=== PATIENT | female | born 1990 | race Caucasian/White ===

== ENCOUNTER 2022-03-14 19:32 | Emergency (ER) | payer MEDICAID ==
[~2022-03-14] VITALS: Ht 170.2 cm; Wt 119.7 kg
[2022-03-15 00:08] LABS: Urine Bacteria FEW /hpf (None Seen); Urine Blood Negative /uL (Negative); Urine Mucus FEW (None Seen); Urine Specific Gravity 1.025 (1.001-1.035); Urine WBC 1 /hpf (0 - 5)
[2022-03-15] MEDS ORDERED: KETOROLAC TROMETH 30 MG/ML 1ML VIAL IM ONE (01:00)
[2022-03-15] MEDS ORDERED: HYDROcodone-ACET 5/325MG TAB PO ONE (01:00)
[2022-03-15 02:00] VITALS: BP 138/94
== END 2022-03-15 02:48 | disposition home or self-care (01) ==
LOC: ER 19:32
DX: M54.50 Low back pain, unspecified (principal); M62.830 Muscle spasm of back; J45.909 Unspecified asthma, uncomplicated; F12.10 Cannabis abuse, uncomplicated; I10 Essential (primary) hypertension; Z90.49 Acquired absence of other specified parts of digestive tract; Z32.02 Encounter for pregnancy test, result negative
CPT/HCPCS: 81001; 81025; 96372; 99283; J1885

== ENCOUNTER 2023-10-30 23:37 | Inpatient (IN) | payer MEDICAID ==
[~2023-10-30] VITALS: Ht 170.2 cm; Wt 132.7 kg
[2023-10-31] VITALS (11 sets, daily range): BP systolic 160; BP diastolic 104; PULSE 94–134; RESP 18–36; TEMP 99.6; O2SAT 94–99
[2023-10-31] MEDS ORDERED: guaiFENesin-DM 100/10mg/5ml SYR PO ONE
[2023-10-31] MEDS ORDERED: SODIUM CHLORIDE 0.9% 1,000 ML IV ONE
[2023-10-31] MEDS ORDERED: TERBUTALINE SULFATE 1 MG/ML 1ML VIAL SC ONE
[2023-10-31] MEDS ORDERED: IPRATROPIUM BROM 0.5 MG/2.5ML INH SOL NEB ONE
[2023-10-31] MEDS ORDERED: ALBUTEROL SULF 2.5 MG/0.5ML(0.5%) NEB SOLN NEB ONE
[2023-10-31] MEDS ORDERED: methylPREDNISolone SOD SUCC 125 MG/2 ML VL IV ONE
[2023-10-31 00:18] LABS: Basophils # (auto) 0.1 10 ^3/uL (0-0.2); Basophils % (auto) 0.8 % (0.0-2.0); Eosinophils # (auto) 0.2 10 ^3/uL (0-0.8); Eosinophils % (auto) 1.3 % (0.0-7.0); Hematocrit 47.6 % (36.0-46.0); Hemoglobin 15.6 g/dL (12.2-16.2); Lymphocytes % (auto) 5.7 % (10.0-50.0); Mean Corpuscular Hemoglobin 28.9 pg (28.0-32.0); Mean Corpuscular Hgb Conc. 32.9 g/dL (32.0-36.0); Mean Corpuscular Volume 87.7 fL (80.0-100.0); Monocytes % (auto) 5.8 % (0.0-12.0); Neutrophils # (auto) 15.1 10 ^3/uL (1.6-8.6); Neutrophils % (auto) 86.4 % (37.0-80.0); Red Blood Cells 5.42 10^6/uL (4.0-5.20); Red Cell Distribution Width 13.2 % (11.8-14.3); White Blood Cell 17.4 10^3/uL (4.4-10.8)
[2023-10-31 00:37] LABS: Alanine Aminotransferase 22 U/L (7-40); Albumin 5.1 g/dL (3.2-4.8); Alkaline Phosphatase 94 U/L (46-116); Anion Gap 7 (5-15); Aspartate Aminotransferase 22 U/L (13-40); Bilirubin, Total 0.7 mg/dL (0.2-1.0); Calcium 9.6 mg/dL (8.7-10.4); Carbon Dioxide 25 mmol/L (20-30); Chloride 104 mmol/L (98-107); Glucose 124 mg/dL (74-106); Potassium 4.3 mmol/L (3.5-5.1); Sodium 136 mmol/L (136-145); Total Protein 8.6 g/dL (5.7-8.2)
[2023-10-31 00:54] LABS: BUN/Creatinine Ratio 5.1 (10.0-20.0); Blood Urea Nitrogen < 5 mg/dL (9-23)
[2023-10-31] MEDS: MAGNESIUM SULFATE 1GM/100ML 100 ML IV SCH ×2 (02:15→02:16)
[2023-10-31] MEDS ORDERED: ONDANSETRON HCL 4 MG/2 ML VIAL IV PRN (03:15)
[2023-10-31] MEDS ORDERED: DOCUSATE SOD 100 MG CAP PO PRN (03:15)
[2023-10-31 03:52] LABS: Base Excess -3.8 mmol/L (-2.0-2.0)
[2023-10-31 04:39] LABS: COVID19 ANTIGEN SOFIA FIA NEGATIVE (NEGATIVE); Rapid Influenza A Negative (Negative); Rapid Influenza B Negative (Negative)
[2023-10-31] MEDS: methylPREDNISolone SOD SUCC 125 MG/2 ML VL IV SCH ×4 (04:48→22:02)
[2023-10-31] MEDS: SODIUM CHLOR 0.9% PF (SALINE LOCK) 10ML VIAL/SYR IV SCH ×3 (05:06→22:02)
[2023-10-31] MEDS ORDERED: LACTATED RINGER'S 1,000 ML IV ONE (06:00)
[2023-10-31] MEDS: IPRATROPIUM BROM 0.5 MG/2.5ML INH SOL NEB SCH ×4 (06:33→23:55)
[2023-10-31] MEDS: ALBUTEROL SULF 2.5 MG/0.5ML(0.5%) NEB SOLN NEB SCH ×4 (06:33→23:55)
[2023-10-31] MEDS: ENOXAPARIN SOD 40 MG/0.4 ML SYRINGE SC SCH (09:44)
[2023-10-31] MEDS: PANTOPRAZOLE 40 MG/10 ML VIAL INJ IV SCH (09:44)
[2023-10-31] MEDS: AZITHROMYCIN 500MG/ 250ML 250 ML IV SCH (13:52)
[2023-10-31] MEDS: SODIUM CHLORIDE 0.9% 1,000 ML IV SCH (13:52)
[2023-10-31] MEDS: MONTELUKAST SODIUM 10 MG TAB PO SCH (22:01)
[2023-11-01] VITALS (10 sets, daily range): PULSE 68–103; RESP 16–24; O2SAT 89–100
[2023-11-01] MEDS: SODIUM CHLORIDE 0.9% 1,000 ML IV SCH ×2 (01:50→15:18)
[2023-11-01] MEDS: methylPREDNISolone SOD SUCC 125 MG/2 ML VL IV SCH ×4 (03:34→21:04)
[2023-11-01 05:39] LABS: Hemoglobin 14.5 g/dL (12.2-16.2); Mean Corpuscular Hemoglobin 29.6 pg (28.0-32.0); Mean Corpuscular Hgb Conc. 33.6 g/dL (32.0-36.0); Mean Corpuscular Volume 87.9 fL (80.0-100.0); Red Blood Cells 4.89 10^6/uL (4.0-5.20); Red Cell Distribution Width 13.4 % (11.8-14.3)
[2023-11-01 05:46] LABS: Anion Gap 8 (5-15); Carbon Dioxide 26 mmol/L (20-30); Chloride 106 mmol/L (98-107); Potassium 4.9 mmol/L (3.5-5.1); Sodium 140 mmol/L (136-145)
[2023-11-01 05:48] LABS: Calcium 9.3 mg/dL (8.7-10.4)
[2023-11-01 05:53] LABS: BUN/Creatinine Ratio 17.1 (10.0-20.0); Blood Urea Nitrogen 14 mg/dL (9-23); Glucose 138 mg/dL (74-106)
[2023-11-01] MEDS: SODIUM CHLOR 0.9% PF (SALINE LOCK) 10ML VIAL/SYR IV SCH ×3 (06:26→21:07)
[2023-11-01] MEDS: ALBUTEROL SULF 2.5 MG/0.5ML(0.5%) NEB SOLN NEB SCH ×5 (06:57→21:59)
[2023-11-01] MEDS: IPRATROPIUM BROM 0.5 MG/2.5ML INH SOL NEB SCH ×5 (06:57→21:58)
[2023-11-01 07:02] LABS: Basophils % (manual) 0 (0.0-2.0); Blast Cells 0; Eosinophils % (manual) 0 (0-7); Metamyelocytes % 0; Myelocytes % 0; Promyelocytes % 0; Reactive Lymphocytes 0
[2023-11-01] MEDS: ACETAMINOPHEN 325 MG TAB PO PRN ×3 (09:06→22:01)
[2023-11-01] MEDS: PANTOPRAZOLE 40 MG/10 ML VIAL INJ IV SCH (09:42)
[2023-11-01] MEDS: ENOXAPARIN SOD 40 MG/0.4 ML SYRINGE SC SCH (09:42)
[2023-11-01] MEDS: AZITHROMYCIN 500MG/ 250ML 250 ML IV SCH (09:43)
[2023-11-01] MEDS ORDERED: LORazepam 2MG/ML-1ML VIAL IV ONE (11:00)
[2023-11-01] MEDS ORDERED: SERT-160 PO (11:48)
[2023-11-01] MEDS ORDERED: ALBUAER3 IN (11:48)
[2023-11-01] MEDS ORDERED: LABE100T5 PO (11:48)
[2023-11-01] MEDS ORDERED: ALPR0.5T PO (11:48)
[2023-11-01] MEDS ORDERED: MAGNESIUM SULFATE 1GM/100ML 100 ML IV ONE (12:00)
[2023-11-01 12:39] LABS: Band Neutrophils % (manual) 4; Lymphocytes % (manual) 4 (10.0-50.0); Monocytes % (manual) 1 (0-12)
[2023-11-01 12:40] LABS: Platelet Estimate Adequate
[2023-11-01] MEDS: ALPRAZolam 0.5 MG TAB PO PRN (21:04)
[2023-11-01] MEDS: MONTELUKAST SODIUM 10 MG TAB PO SCH (21:05)
[2023-11-02] VITALS (19 sets, daily range): BP systolic 104–144; BP diastolic 51–88; PULSE 76–96; RESP 17–22; TEMP 97.7–98.7; O2SAT 90–96
[2023-11-02] MEDS: SODIUM CHLORIDE 0.9% 1,000 ML IV SCH (01:14)
[2023-11-02] MEDS: IPRATROPIUM BROM 0.5 MG/2.5ML INH SOL NEB SCH ×6 (01:47→22:21)
[2023-11-02] MEDS: ALBUTEROL SULF 2.5 MG/0.5ML(0.5%) NEB SOLN NEB SCH ×6 (01:47→22:21)
[2023-11-02] MEDS: methylPREDNISolone SOD SUCC 125 MG/2 ML VL IV SCH ×4 (03:51→21:08)
[2023-11-02] MEDS: SODIUM CHLOR 0.9% PF (SALINE LOCK) 10ML VIAL/SYR IV SCH ×3 (06:01→21:10)
[2023-11-02] MEDS: AZITHROMYCIN 500MG/ 250ML 250 ML IV SCH (09:46)
[2023-11-02] MEDS: PANTOPRAZOLE 40 MG/10 ML VIAL INJ IV SCH (09:46)
[2023-11-02] MEDS: ENOXAPARIN SOD 40 MG/0.4 ML SYRINGE SC SCH (09:46)
[2023-11-02] MEDS: HYDROcodone-ACET 5/325MG TAB PO PRN ×2 (09:55→19:59)
[2023-11-02] MEDS: LORATADINE 10 MG TAB PO SCH (13:50)
[2023-11-02] MEDS: ACETYLCYSTEINE 10 %(100MG/ML) SOL 4ML NEB SCH ×3 (15:06→22:21)
[2023-11-02] MEDS: MONTELUKAST SODIUM 10 MG TAB PO SCH (21:08)
[2023-11-02] MEDS: ALPRAZolam 0.5 MG TAB PO PRN (21:08)
[2023-11-03] VITALS (13 sets, daily range): BP systolic 119–151; BP diastolic 61–89; PULSE 73–98; RESP 18–20; TEMP 97.4–98; O2SAT 91–99
[2023-11-03] MEDS: IPRATROPIUM BROM 0.5 MG/2.5ML INH SOL NEB SCH ×4 (02:08→14:19)
[2023-11-03] MEDS: ALBUTEROL SULF 2.5 MG/0.5ML(0.5%) NEB SOLN NEB SCH ×4 (02:08→14:19)
[2023-11-03] MEDS: ACETYLCYSTEINE 10 %(100MG/ML) SOL 4ML NEB SCH (02:08)
[2023-11-03] MEDS: methylPREDNISolone SOD SUCC 125 MG/2 ML VL IV SCH ×2 (03:53→10:56)
[2023-11-03] MEDS: SODIUM CHLOR 0.9% PF (SALINE LOCK) 10ML VIAL/SYR IV SCH (06:03)
[2023-11-03] MEDS: PANTOPRAZOLE 40 MG/10 ML VIAL INJ IV SCH (10:56)
[2023-11-03] MEDS: ENOXAPARIN SOD 40 MG/0.4 ML SYRINGE SC SCH (10:56)
[2023-11-03] MEDS: AZITHROMYCIN 500MG/ 250ML 250 ML IV SCH (10:56)
[2023-11-03] MEDS: LORATADINE 10 MG TAB PO SCH (10:57)
[2023-11-03] MEDS ORDERED: ALBU0.084 NEB (12:29)
[2023-11-03] MEDS ORDERED: DOXY-448 PO (12:29)
[2023-11-03] MEDS ORDERED: PRED20TA2 PO (12:29)
[2023-11-03] MEDS ORDERED: ALBUAER3 IN (12:29)
[2023-11-03] MEDS ORDERED: MONT10TA23 PO (12:29)
== END 2023-11-03 15:00 | disposition home or self-care (01) | DRG 133 ==
LOC: ER 23:37 → OVERFLOW 10-31 03:15 → EAST 11-01 10:14 → CENTRAL 11-01 17:14
PROVIDERS: ADMIT Internal Medicine; ATTEND Nurse Practitioner Acute Care
DX: J96.01 Acute respiratory failure with hypoxia (principal); J45.901 Unspecified asthma with (acute) exacerbation; B34.9 Viral infection, unspecified; D72.829 Elevated white blood cell count, unspecified; E66.9 Obesity, unspecified; F41.9 Anxiety disorder, unspecified; I10 Essential (primary) hypertension; Z20.822 Contact with and (suspected) exposure to COVID-19; F32.A Depression, unspecified; J45.909 Unspecified asthma, uncomplicated; Z90.49 Acquired absence of other specified parts of digestive tract; Z68.42 Body mass index [BMI] 45.0-49.9, adult
CPT/HCPCS: 36415; 36600; 71045; 80048; 80053; 82805; 83880; 84484; 85007; 85025; 85027; 87040; 87070; 87205; 87426; 87804; 94003; 94640; 96365; 96366; 96372; 96375; C9113; G0378; J2405

== ENCOUNTER 2024-04-26 14:25 | Emergency (ER) | payer MEDICAID ==
[~2024-04-26] VITALS: Ht 170.2 cm; Wt 132.2 kg
[~2024-04-26 14:25] MED LIST: ALBU0.084 NEB; ALBUAER3 IN; ALPR0.5T PO; DOXY-448 PO; LABE100T8 PO; MONT10TA23 PO; PRED20TA2 PO; SERT-160 PO
[2024-04-27 00:59] LABS: Basophils # (auto) 0 10 ^3/uL (0-0.2); Basophils % (auto) 0.2 % (0.0-2.0); Eosinophils # (auto) 0 10 ^3/uL (0-0.8); Hematocrit 47.6 % (36.0-46.0); Hemoglobin 16.3 g/dL (12.2-16.2); Lymphocytes # (auto) 1.2 10 ^3/uL (0.4-5.4); Lymphocytes % (auto) 7.7 % (10.0-50.0); Mean Corpuscular Hemoglobin 29.3 pg (28.0-32.0); Mean Corpuscular Hgb Conc. 34.1 g/dL (32.0-36.0); Mean Corpuscular Volume 85.9 fL (80.0-100.0); Monocytes # (auto) 0.5 10 ^3/uL (0-1.3); Monocytes % (auto) 3.3 % (0.0-12.0); Neutrophils # (auto) 14.3 10 ^3/uL (1.6-8.6); Neutrophils % (auto) 88.8 % (37.0-80.0); Red Blood Cells 5.55 10^6/uL (4.0-5.20); Red Cell Distribution Width 13.7 % (11.8-14.3); White Blood Cell 16.1 10^3/uL (4.4-10.8)
[2024-04-27 01:07] LABS: Alanine Aminotransferase 21 U/L (7-40); Albumin 5.1 g/dL (3.2-4.8); Alkaline Phosphatase 86 U/L (46-116); Anion Gap 12 (5-15); Aspartate Aminotransferase 13 U/L (13-40); BUN/Creatinine Ratio 8.3 (10.0-20.0); Blood Urea Nitrogen 9 mg/dL (9-23); Calcium 10.4 mg/dL (8.7-10.4); Carbon Dioxide 17 mmol/L (20-30); Chloride 106 mmol/L (98-107); Glucose 148 mg/dL (74-106); Lipase 83 U/L (12-53); Potassium 3.8 mmol/L (3.5-5.1); Sodium 135 mmol/L (136-145)
[2024-04-27 01:08] LABS: Bilirubin, Total 0.6 mg/dL (0.2-1.0); Total Protein 8.4 g/dL (5.7-8.2)
[2024-04-27] MEDS ORDERED: ZOFR4T PO (04:47)
[2024-04-27 05:30] VITALS: BP 158/99; PULSE 87; RESP 16; TEMP 97.5; O2SAT 97
[2024-04-27] MEDS: ONDANSETRON HCL 4 MG/2 ML VIAL IV ONE (06:16)
[2024-04-27] MEDS: PROCHLORPERAZINE EDISYLATE 5 MG/ML 2ML VIAL IM ONE (06:16)
[2024-04-27] MEDS: SODIUM CHLORIDE 0.9% 1,000 ML IV ONE (06:16)
[2024-04-27] MEDS: HALOPERIDOL LACTATE 5 MG/ML INJ VIAL IM ONE (06:16)
[2024-04-27 06:47] LABS: Urine Bacteria FEW /hpf (None Seen); Urine Blood 1+ /uL (Negative); Urine Clarity Ex.Turbid (Clear); Urine Color Light-Brown (Yellow); Urine Mucus FEW (None Seen); Urine Protein, UAD 2+ (Negative); Urine Specific Gravity 1.033 (1.001-1.035); Urine Urobilinogen Normal (Negative); Urine WBC 8 /hpf (0 - 5)
[2024-04-27 06:53] LABS: Amphetamine Screen, Urine Neg (NEGATIVE); Barbiturate Scree,Urine Neg (NEGATIVE); Benzodiazephine Screen, Urine Neg (NEGATIVE); Cocaine Screen, Urine Neg (NEGATIVE)
[2024-04-27 06:54] LABS: Cannabinoid Screen, Urine Pos (NEGATIVE); Opiate Scree,Urine Neg (NEGATIVE); Phencyclidine Screen, Urine Neg (NEGATIVE)
== END 2024-04-27 07:26 | disposition home or self-care (01) ==
LOC: ER 14:25
DX: R11.15 Cyclical vomiting syndrome unrelated to migraine (principal); J45.909 Unspecified asthma, uncomplicated; I10 Essential (primary) hypertension; K21.9 Gastro-esophageal reflux disease without esophagitis; F12.10 Cannabis abuse, uncomplicated; Z90.49 Acquired absence of other specified parts of digestive tract; Z79.899 Other long term (current) drug therapy
CPT/HCPCS: 36415; 74176; 80053; 80307; 81001; 82962; 83690; 85025; 96361; 96372; 96374; 99285; J0780; J2405; J7030